=== PATIENT | female | born 1960 | race Caucasian/White ===

== ENCOUNTER → 2017-03-11 | Outpatient (CLI) | payer BC ==
[2017-03-11 08:31] LABS: HEMOGLOBIN 14.4 g/dL (12.0-15.5); HGB HCT DIFFERENCE 2.2; MEAN CORPUSCULAR HEMOGLOBIN 32.4 pg (27.0-33.4); MEAN CORPUSCULAR HGB CONC 35.1 g/dL (32.0-36.0); MEAN CORPUSCULAR VOLUME 92 fl (80-97); RED BLOOD COUNT 4.45 10^6/uL (3.72-5.28); RED CELL DISTRIBUTION WIDTH 13.5 % (11.5-14.0)
[2017-03-11 08:50] LABS: ALANINE AMINOTRANSFERASE 50 U/L (9-52); ALBUMIN 4.5 g/dL (3.5-5.0); ALKALINE PHOSPHATASE 47 U/L (38-126); ANION GAP 10 (5-19); ASPARTATE AMINO TRANSFERASE 41 U/L (14-36); BILIRUBIN,DIRECT 0.3 mg/dL (0.0-0.4); BILIRUBIN,TOTAL 0.4 mg/dL (0.2-1.3); BLOOD UREA NITROGEN 17 mg/dL (7-20); CALCIUM 9.4 mg/dL (8.4-10.2); CARBON DIOXIDE 30 mmol/L (22-30); CHLORIDE 103 mmol/L (98-107); CHOLESTEROL 180.38 mg/dL (0-200); CREATININE RESULT 0.69 mg/dL (0.52-1.25); Direct HDL 50 mg/dL (>40); GLUCOSE 97 mg/dL (75-110); POTASSIUM 4.5 mmol/L (3.6-5.0); SODIUM 142.6 mmol/L (137-145); TOTAL PROTEIN 7.4 g/dL (6.3-8.2); TRIGLYCERIDES 96 mg/dL (<150)
[2017-03-11 08:55] LABS: ALANINE AMINOTRANSFERASE 48 U/L (9-52); ALBUMIN 4.4 g/dL (3.5-5.0); ALKALINE PHOSPHATASE 48 U/L (38-126); ASPARTATE AMINO TRANSFERASE 40 U/L (14-36); BILIRUBIN,DIRECT 0.3 mg/dL (0.0-0.4); BILIRUBIN,TOTAL 0.4 mg/dL (0.2-1.3); TOTAL PROTEIN 7.3 g/dL (6.3-8.2)
[2017-03-11 09:01] LABS: DIRECT LDL 104 mg/dL (<100)
== END ==
LOC: OD 07:36
PROVIDERS: ATTEND Physician Assistant
DX: Z00.00 Encounter for general adult medical examination without abnormal findings (principal); B18.2 Chronic viral hepatitis C
CPT/HCPCS: 36415; 80053; 80061; 80076; 84443; 85027

== ENCOUNTER → 2017-03-18 | Outpatient (CLI) | payer BC ==
--- NOTE | 2017-03-18 14:36 | WOMENS IMAGING REPORT ---
EXAM DESCRIPTION: 3D SCREENING MAMMO BILAT COMPLETED DATE/TIME: 03/18/2017 2:14 pm REASON FOR STUDY: ROUTINE SCREENING; Z12.31 Z12.31 ENCNTR SCREEN MAMMOGRAM FOR MALIGNANT NEOPLASM O F FUNMI COMPARISON: 2008, 2012 TECHNIQUE: Standard craniocaudal and mediolateral oblique views of each breast recorded using digita l acquisition and breast tomosynthesis. LIMITATIONS: None. FINDINGS: No masses, calcifications or architectural distortion. No areas of suspicion. Read with the assistance of CAD. .[facility] - R2 Cenova Version 1.3 .[facility] Imaging - R2 Cenova Version 1.3 .[facility] Imaging - R2 Cenova Version 2.4 .[facility] - R2 Cenova Version 2.4 .[facility] - R2 Laundry Agent Version 9.2 IMPRESSION: NORMAL MAMMOGRAM. BIRADS 1. BREAST DENSITY: b. There are scattered areas of fibroglandular density. BIRAD: 1 NEGATIVE RECOMMENDATION: ROUTINE SCREENING COMMENT: The patient has been notified of the results by letter per SA requirements. Additional no tification policies are in place for contacting patient with suspicious or incomplete findings. Quality ID #[id number]: The [employer] recommends an annual screening mammogram for women aged 40 years or over. This facility utilizes a reminder system to ensure that all patients receive reminder letters, and/or direct phone calls for appointments. This includes reminders for routine scr eening mammograms, diagnostic mammograms, or other Breast Imaging Interventions when appropriate. Th is patient will be placed in the appropriate reminder system. The [employer] (ACR) has developed recommendations for screening MRI of the breast s in certain patient populations, to be used in conjunction with mammography. Breast MRI surveillanc e may be appropriate for women with more than 20% lifetime risk of developing breast cancer as deter mined by genetic testing, significant family history of the disease, or history of mantle radiation f or Hodgkins Disease. ACR Practice Guidelines 2008. DBT Technology DBT is a type of tomographic mammography. With conventional mammography, overlapping breast tissue ma y make lesions difficult to detect, even with good compression. DBT uses an x-ray tube that rotates a round the breast, taking images at different angles. These images are then combined to create thin sl ices of the breast that the radiologist can view as a 3D reconstruction. The Drive [employer] unit can perform full-field digital mammograms (2D imaging); or DBT (3D imaging); or both, in a combination mode that quickly performs both the mammogram and the tomosynthesis scan while the breast is still compressed. PQRS 6045F: Fluoroscopic imaging is not utilized for breast tomosynthesis. TECHNICAL DOCUMENTATION: FINDING NUMBER: (1) ASSESSMENT: (1) JOB ID: [id number] [employer]- All Rights Reserved
== END ==
LOC: WI 13:56
PROVIDERS: ATTEND Physician Assistant
DX: Z12.31 Encounter for screening mammogram for malignant neoplasm of breast (principal)
CPT/HCPCS: 77063; G0202; 77067

== ENCOUNTER 2017-06-19 18:38 | Observation (INO) | payer BC ==
[2017-06-19] MEDS ORDERED: ASPIRIN 81 MG TABLET, CHEWABLE PO ONE (18:47)
[2017-06-19] MEDS ORDERED: NITROGLYCERIN 0.4 MG/TAB 25 TAB/BOTTLE SL ONE (19:05)
[2017-06-19 19:06] LABS: ABSOLUTE BASOPHILS # (AUTO) 0.1 10^3/uL (0.0-0.2); ABSOLUTE EOSINOPHILS # (AUTO) 0.2 10^3/uL (0.0-0.6); ABSOLUTE LYMPHOCYTES (AUTO) 1.5 10^3/uL (0.5-4.7); ABSOLUTE MONOCYTES (AUTO) 0.5 10^3/uL (0.1-1.4); ABSOLUTE NEUT (AUTO) 2.9 10^3/uL (1.7-8.2); EOSINOPHILS % (AUTO) 4.5 % (0-6); HEMOGLOBIN 14.6 g/dL (12.0-15.5); HGB HCT DIFFERENCE 1.8; LYMPHOCYTES % (AUTO) 28.5 % (13-45); MEAN CORPUSCULAR HEMOGLOBIN 32.2 pg (27.0-33.4); MEAN CORPUSCULAR HGB CONC 34.9 g/dL (32.0-36.0); MEAN CORPUSCULAR VOLUME 92 fl (80-97); RED BLOOD COUNT 4.55 10^6/uL (3.72-5.28); RED CELL DISTRIBUTION WIDTH 13.5 % (11.5-14.0); WHITE BLOOD COUNT 5.2 10^3/uL (4.0-10.5)
--- NOTE | 2017-06-19 19:08 | ER Document Report ---
ED Cardiac - General Chief Complaint: Chest Pain Stated Complaint: CHEST TIGHTNESS Time Seen by Provider: 06/19/17 19:05 Notes: 56 years old female with no significant past medical history other than seronegative arthritis, was about to have her dinner felt sharp pain over the substernal to epigastric region radiated to the back to the jaw and felt sharp pain in the teeth in the left side. It lasted until she came to the ED. Initially the intensity of pain was 10/10 now is 4/10. Denies any any diaphoresis but had the sensation of heart beating faster. Denied any left arm numbness tingling sensation. Denies any constitutional symptoms. Denies any history of smoking or family history of heart disease except grandfather of [place]. TRAVEL OUTSIDE OF THE [place] IN LAST 30 DAYS: No - Related Data Allergies/Adverse Reactions: No Known Drug Allergies Allergy (Verified 02/24/12 15:08) Past Medical History - Social History Smoking Status: Never Smoker Family History: Reviewed & Not Pertinent - Past Medical History Cardiac Medical History: Denies: Hx Coronary Artery Disease, Hx Heart Attack, Hx Hypertension Pulmonary Medical History: Denies: Hx Asthma, Hx Bronchitis, Hx COPD, Hx Pneumonia Neurological Medical History: Denies: Hx Cerebrovascular Accident, Hx Seizures Musculoskeltal Medical History: Denies Hx Arthritis Past Surgical History: Denies: Hx Hysterectomy, Hx Pacemaker - Immunizations Hx Diphtheria, Pertussis, Tetanus Vaccination: No Review of Systems - Review of Systems Notes: REVIEW OF SYSTEMS: CONSTITUTIONAL : Denies fever, chills, or sweats. Denies recent illness. EENT: Denies eye, ear, throat, or mouth pain or symptoms. Denies nasal or sinus congestion or discharge. Denies throat, tongue, or mouth swelling or difficulty swallowing. CARDIOVASCULAR: Denies chest pain. Denies palpitations or racing or irregular heart beat. Denies ankle edema. RESPIRATORY: Denies cough, cold, or chest congestion. Denies shortness of breath, difficulty breathing, or wheezing. GASTROINTESTINAL: Denies abdominal pain or distention. Denies nausea, vomiting , or diarrhea. Denies blood in vomitus, stools, or per rectum. Denies black, tarry stools. Denies constipation. GENITOURINARY: Denies difficulty urinating, painful urination, burning, frequency, blood in urine, or discharge. FEMALE GENITOURINARY: Denies vaginal bleeding, heavy or abnormal periods, irregular periods. Denies vaginal discharge or odor. MUSCULOSKELETAL: Denies back or neck pain or stiffness. Denies joint pain or swelling. SKIN: Denies rash, lesions or sores. HEMATOLOGIC : Denies easy bruising or bleeding. LYMPHATIC: Denies swollen, enlarged glands. NEUROLOGICAL: Denies confusion or altered mental status. Denies passing out or loss of consciousness. Denies dizziness or lightheadedness. Denies headache. Denies weakness or paralysis or loss of use of either side. Denies problems with gait or speech. Denies sensory loss, numbness, or tingling. Denies seizures. PSYCHIATRIC: Denies anxiety or stress. Denies depression, suicidal ideation, or homicidal ideation. ALL OTHER SYSTEMS REVIEWED AND NEGATIVE. PHYSICAL EXAMINATION: GENERAL: Well-appearing, well-nourished and in no acute distress. HEAD: Atraumatic, normocephalic. EYES: Pupils equal round and reactive to light, extraocular movements intact, conjunctiva are normal. ENT: Nares patent, oropharynx clear without exudates. Moist mucous membranes. NECK: Normal range of motion, supple without lymphadenopathy LUNGS: Breath sounds clear to auscultation bilaterally and equal. No wheezes rales or rhonchi. HEART: Regular rate and rhythm without murmurs ABDOMEN: Soft, nontender, nondistended abdomen. No guarding, no rebound. No masses appreciated. Female : deferred Musculoskeletal: Normal range of motion, no pitting or edema. No cyanosis. NEUROLOGICAL: Cranial nerves grossly intact. Normal speech, normal gait. Normal sensory, motor exams PSYCH: Normal mood, normal affect. SKIN: Warm, Dry, normal turgor, no rashes or lesions noted. Dictation was performed using [employer] recognition software Physical Exam - Vital signs Vitals: Temp Pulse Resp BP Pulse Ox 97.8 F 66 16 144/73 H 98 06/19/17 18:40 06/19/17 18:40 06/19/17 18:40 06/19/17 18:40 06/19/17 18:40 Course - Re-evaluation Re-evalutation: 06/19/17 20:13 She is currently pain-free, fact that she had some jaw pain and teeth pain I like to observe for 24 hours. - Vital Signs Vital signs: Temp Pulse Resp BP Pulse Ox 97.8 F 66 16 144/73 H 100 06/19/17 18:40 06/19/17 18:40 06/19/17 18:40 06/19/17 18:40 06/19/17 19:00 - Laboratory Result Diagrams: 06/19/17 18:56 06/19/17 18:56 Laboratory results interpreted by me: 06/19/17 18:56 AST 63 H ALT 90 H Creatine Kinase 251 H - EKG Interpretation by Me EKG shows normal: Sinus rhythm - Sinus rhythm at the rate of 62 bpm normal axis no acute ST elevation ST depression T-wave inversion noted. Discharge - Discharge Clinical Impression: Chest pain, rule out acute myocardial infarction Condition: Fair Disposition: ADMITTED OBSERVATION Admitting Provider: Hospitalist Unit Admitted: Telemetry
[2017-06-19 19:23] LABS: ALANINE AMINOTRANSFERASE 90 U/L (9-52); ALBUMIN 4.7 g/dL (3.5-5.0); ALKALINE PHOSPHATASE 50 U/L (38-126); ASPARTATE AMINO TRANSFERASE 63 U/L (14-36); BILIRUBIN,DIRECT 0.3 mg/dL (0.0-0.4); BILIRUBIN,TOTAL 0.3 mg/dL (0.2-1.3); BLOOD UREA NITROGEN 16 mg/dL (7-20); CALCIUM 9.5 mg/dL (8.4-10.2); CARBON DIOXIDE 27 mmol/L (22-30); CREATINE KINASE 251 U/L (30-135); CREATININE RESULT 0.57 mg/dL (0.52-1.25); GLUCOSE 100 mg/dL (75-110); POTASSIUM 3.9 mmol/L (3.6-5.0); SODIUM 142.1 mmol/L (137-145); TOTAL PROTEIN 8.1 g/dL (6.3-8.2)
[2017-06-19 19:24] LABS: ANION GAP 13 (5-19); CHLORIDE 102 mmol/L (98-107)
[2017-06-19 19:34] LABS: CREATINE KINASE MB 2.21 ng/mL (<4.55)
[2017-06-19 19:36] LABS: TROPONIN I < 0.012 ng/mL
--- NOTE | 2017-06-19 19:40 | RADIOLOGY REPORT (SQ) ---
EXAM DESCRIPTION: CHEST SINGLE VIEW COMPLETED DATE/TIME: 06/19/2017 7:13 pm REASON FOR STUDY: bed 11 cp COMPARISON: None. NUMBER OF VIEWS: One view. TECHNIQUE: Single frontal radiographic view of the chest acquired. LIMITATIONS: None. FINDINGS: LUNGS AND PLEURA: No opacities, masses or pneumothorax. No pleural effusion. Attenuated bl ood vessels and flattened neeru-diaphragms. MEDIASTINUM AND HILAR STRUCTURES: No masses. Contour normal. HEART AND VASCULAR STRUCTURES: Heart normal in size. Normal vasculature. BONES: No acute findings. HARDWARE: None in the chest. OTHER: No other significant finding. IMPRESSION: COPD. NO ACUTE RADIOGRAPHIC FINDING IN THE CHEST. TECHNICAL DOCUMENTATION: JOB ID: [id number] [employer]- All Rights Reserved
[2017-06-19] MEDS ORDERED: NITROGLYCERIN 0.4 MG/TAB 25 TAB/BOTTLE SL PRN (20:24)
[2017-06-19] MEDS ORDERED: ONDANSETRON HCL INJ/PF 4 MG/2 ML SDV IV PRN (20:24)
[2017-06-19] MEDS ORDERED: METOPROLOL TARTRATE PF/INJ 5 MG/5 ML SDV IV PRN ×2 (20:24→23:45)
[2017-06-19] MEDS ORDERED: LANSOPRAZOLE 15 MG TAB.RAP.DR PO ONE (20:24)
[2017-06-19] MEDS ORDERED: LIDOCAINE 2% VISCOUS SOLN 20 ML UDCUP PO ONE (21:05)
[2017-06-19] MEDS ORDERED: MAG HYDROX/AL HYDROX/SIMETH SUSP 30 ML UDCUP PO ONE (21:05)
[2017-06-19] MEDS ORDERED: METOCLOPRAMIDE HCL ORAL SOLN 10 MG/10 ML UDCUP PO ONE (21:05)
[2017-06-19] MEDS ORDERED: PREDNISONE 20 MG TABLET PO ONE (21:30)
--- NOTE | 2017-06-19 22:50 | EKG REPORT ---
SEVERITY:- BORDERLINE ECG - SINUS RHYTHM BORDERLINE T ABNORMALITIES, INFERIOR LEADS : Confirmed by: Aldair Uribe 19-Jun-2017 22:49:03
--- NOTE | 2017-06-19 23:51 | PDOC H&P ---
History of Present Illness Admission Date/PCP: 06/19/17 20:29 LUIS FERNANDO WHITFIELD PA-C History of Present Illness: CHAGO MCGOVERN is a 56 year old female with a past medical history of hepatitis C status post Harvoni, and a seronegative arthritis who presents with complaints of chest pain. She reports that she went to a movie and then went to eat. She reports she was called at the movie and drank some hot coffee and rate after drinking hot coffee she began having substernal chest pain that she reports was sharp and lasted approximately 1 hour. She then reports the pain that went from her neck into her teeth. But she does not feel that this was pain that radiated from her chest to her neck. She denied any associated shortness of breath, nausea, vomiting, diaphoresis. She reports she felt her heart was beating hard. She reports that when EMS arrived her blood pressure was slightly high at first, but now is normal. Patient reports now that she has sharp chest pain with inspiration and also with pressing on her chest. She is referred to the hospital service for evaluation of her chest pain. Past Medical History Cardiac Medical History: Denies: Coronary Artery Disease, Myocardial Infarction, Hypertension Pulmonary Medical History: Denies: Asthma, Bronchitis, Chronic Obstructive Pulmonary Disease (COPD), Pneumonia Neurological Medical History: Denies: Seizures Musculoskeltal Medical History: Reports: Arthritis Hematology: Denies: Anemia Infectious Medical History: Reports: Hepatitis C Past Surgical History Past Surgical History: Reports: Appendectomy, Other - D&C Denies: Hysterectomy, Pacemaker Social History Smoking Status: Never Smoker Frequency of Alcohol Use: Occasional Hx Recreational Drug Use: No Hx Prescription Drug Abuse: No - Advance Directive Resuscitation Status: Full Code Surrogate healthcare decision maker:: Shaheed Mcgovern, Family History Family History: Hypertension Parental Family History Reviewed: Yes Children Family History Reviewed: Yes Sibling(s) Family History Reviewed.: Yes Medication/Allergy Home Medications: Azelastine HCl [Optivar 6 mL Drops] 1 drop OP DAILY 02/24/12 Levocetirizine Dihydrochloride [Xyzal 5 mg Tablet] 5 mg PO DAILY 02/24/12 Mometasone Furoate [Nasonex] 1 inh NS 02/24/12 Montelukast Sodium [Singulair 10 Mg Tablet] 10 mg PO QHS 02/24/12 Alpha Lipoic Acid [Alpha Lipoic Acid 100 mg Capsule] 200 mg PO 03/22/12 Milk Thistle 1,000 mg PO DAILY 03/22/12 Multivitamin [Multivitamins] 1 each PO 03/22/12 Allergies/Adverse Reactions: No Known Drug Allergies Allergy (Verified 02/24/12 15:08) Review of Systems Constitutional: ABSENT: chills, fever(s), headache(s), weight gain, weight loss Eyes: ABSENT: visual disturbances Ears: ABSENT: hearing changes Cardiovascular: PRESENT: as per HPI. ABSENT: chest pain, dyspnea on exertion, edema, orthropnea, palpitations Respiratory: ABSENT: cough, hemoptysis Gastrointestinal: ABSENT: abdominal pain, constipation, diarrhea, hematemesis, hematochezia, nausea, vomiting Genitourinary: ABSENT: dysuria, hematuria Musculoskeletal: ABSENT: joint swelling Integumentary: ABSENT: rash, wounds Neurological: ABSENT: abnormal gait, abnormal speech, confusion, dizziness, focal weakness, syncope Psychiatric: ABSENT: anxiety, depression, homidical ideation, suicidal ideation Endocrine: ABSENT: cold intolerance, heat intolerance, polydipsia, polyuria Hematologic/Lymphatic: ABSENT: easy bleeding, easy bruising Physical Exam Vital Signs: Temp Pulse Resp BP Pulse Ox 97.8 F 66 16 119/74 100 06/19/17 21:58 06/19/17 21:58 06/19/17 21:58 06/19/17 21:58 06/19/17 21:58 Intake & Output 06/18/17 06/19/17 06/20/17 06:59 06:59 06:59 Weight 64.3 kg General appearance: PRESENT: no acute distress, well-developed, well-nourished Head exam: PRESENT: atraumatic, normocephalic Eye exam: PRESENT: conjunctiva pink, EOMI, PERRLA. ABSENT: scleral icterus Ear exam: PRESENT: normal external ear exam Mouth exam: PRESENT: moist, tongue midline Neck exam: ABSENT: carotid bruit, JVD, lymphadenopathy, thyromegaly Respiratory exam: PRESENT: clear to auscultation sarita. ABSENT: rales, rhonchi, wheezes Cardiovascular exam: PRESENT: RRR. ABSENT: diastolic murmur, rubs, systolic murmur Pulses: PRESENT: normal dorsalis pedis pul Vascular exam: PRESENT: normal capillary refill GI/Abdominal exam: PRESENT: normal bowel sounds, soft. ABSENT: distended, guarding, mass, organolmegaly, rebound, tenderness Rectal exam: PRESENT: deferred Extremities exam: PRESENT: full ROM. ABSENT: calf tenderness, clubbing, pedal edema Neurological exam: PRESENT: alert, awake, oriented to person, oriented to place , oriented to time, oriented to situation, CN II-XII grossly intact. ABSENT: motor sensory deficit Psychiatric exam: PRESENT: appropriate affect, normal mood. ABSENT: homicidal ideation, suicidal ideation Skin exam: PRESENT: dry, intact, warm. ABSENT: cyanosis, rash Results Laboratory Results: 06/19/17 06/19/17 06/19/17 18:56 18:56 18:56 WBC 5.2 Hgb 14.6 Hct 42.0 Plt Count 199 Sodium 142.1 Potassium 3.9 Chloride 102 Carbon Dioxide 27 BUN 16 Creatinine 0.57 AST 63 H ALT 90 H Creatine Kinase 251 H CK-MB (CK-2) 2.21 Albumin 4.7 EKG Comments: NSR no st changes Impressions: Chest X-Ray 06/19/17 18:47 IMPRESSION: COPD. NO ACUTE RADIOGRAPHIC FINDING IN THE CHEST. Status: Imported from PACS Assessment & Plan - Diagnosis (1) Chest pain, rule out acute myocardial infarction Is this a current diagnosis for this admission?: Yes Plan: Place patient on telemetry observation. Monitor for arrhythmia or ST segment changes. Initiate patient on metoprolol, Lipitor, oxygen, nitroglycerin, and aspirin. Serial cardiac enzymes every 6 hours. Testing lipid panel in the morning. (2) Musculoskeletal pain Is this a current diagnosis for this admission?: Yes Plan: Will initiate patient on prednisone 60 mg p.o. daily. (3) Elevated LFTs Is this a current diagnosis for this admission?: Yes Plan: Likely secondary to history of hepatitis C. Will defer this to her outpatient GI doctor - Time Time Spent: 30 to 50 Minutes Medications reviewed and adjusted accordingly: Yes Anticipated discharge: Home Within: within 24 hours - Inpatient Certification Based on my medical assessment, after consideration of the patient's comorbidities, presenting symptoms, or acuity I expect that the services needed warrant INPATIENT care.: No I certify that my determination is in accordance with my understanding of Medicare's requirements for reasonable and necessary INPATIENT services [42 CFR 412.3e].: No Post Hospital Care: D/C Tester Armature Or Fields Documentation
[2017-06-20 06:39] LABS: CHOLESTEROL 189.56 mg/dL (0-200); Direct HDL 54 mg/dL (>40); TRIGLYCERIDES 59 mg/dL (<150)
[2017-06-20 06:50] LABS: DIRECT LDL 111 mg/dL (<100)
[2017-06-20] MEDS ORDERED: PREDNISONE 20 MG TABLET PO SCH (10:00)
[2017-06-20] MEDS ORDERED: ASPIRIN 325 MG TABLET, ENT COATED PO SCH (10:00)
[2017-06-20] MEDS: HYDROXYCHLOROQUINE SULFATE 200 MG TABLET PO SCH ×2 (12:12→16:51)
[2017-06-20] MEDS ORDERED: ONDANSETRON HCL INJ/PF 4 MG/2 ML SDV IV PRN (13:30)
[2017-06-20] MEDS ORDERED: MELOXICAM 15 MG TABLET PO ONE (13:45)
[2017-06-20 17:12] VITALS: BP 101/59
--- NOTE | 2017-06-20 17:12 | PDOC DISCHARGE SUMMARY ---
General - Admit/Disc Date/PCP Admission Date/Primary Care Provider: 06/19/17 20:29 LUIS FERNANDO WHITFIELD PA-C Discharge Date: 06/20/17 - Discharge Diagnosis (2) Elevated LFTs Is this a current diagnosis for this admission?: Yes (3) Musculoskeletal pain Is this a current diagnosis for this admission?: Yes - Additional Information Resuscitation Status: Full Code Prescriptions: Prednisone [Deltasone 20 mg Tablet] 60 mg PO DAILY #9 tablet Home Medications: Multivitamin [Multivitamins] 1 cap PO DAILY 03/22/12 Cetirizine HCl [Zyrtec 10 mg Tablet] 10 mg PO DAILY 06/20/17 Hydroxychloroquine Sulfate [Plaquenil 200 mg Tablet] 400 mg PO WBRKFST 06/20/17 Meloxicam [Mobic] 15 mg PO WBRKFST 06/20/17 Prednisone [Deltasone 20 mg Tablet] 60 mg PO DAILY #9 tablet 06/20/17 Psyllium Husk [Metamucil] 0.8 gm PO DAILY 06/20/17 History of Present Illness History of Present Illness: CHAGO MCGOVERN is a 56 year old white female with a past medical history significant for hep C currently on therapy and mixed connective tissue disease who presented to the service with chest wall pain. Please see details of the patient's admission as outlined below by the admitting physician. Admission Date/PCP: 06/19/17 20:29 LUIS FERNANDO WHITFIELD PA-C History of Present Illness: CHAGO MCGOVERN is a 56 year old female with a past medical history of hepatitis C status post Harvoni, and a seronegative arthritis who presents with complaints of chest pain. She reports that she went to a movie and then went to eat. She reports she was called at the movie and drank some hot coffee and rate after drinking hot coffee she began having substernal chest pain that she reports was sharp and lasted approximately 1 hour. She then reports the pain that went from her neck into her teeth. But she does not feel that this was pain that radiated from her chest to her neck. She denied any associated shortness of breath, nausea, vomiting, diaphoresis. She reports she felt her heart was beating hard. She reports that when EMS arrived her blood pressure was slightly high at first, but now is normal. Patient reports now that she has sharp chest pain with inspiration and also with pressing on her chest. She is referred to the hospital service for evaluation of her chest pain. Hospital Course Hospital Course: Patient was admitted to the service in the observation unit. She had a troponins trended. Her first troponin was negative. The troponins eventually hubert to 0.06 and then came back down to 0.03 and 0.012. All troponins were negative. The patient readily admits that her pain was reproducible and started in a cold movie theater which has set off her mixed connective tissue disease symptoms before. He was placed on prednisone 60 here. We have plans for her to continue this for total of 3 days and then stop. She has a human development professor that she follows with as an outpatient and she keep her previously scheduled appointment with that person. The patient is followed across the street at [facility]. I have suggested that she follow-up within a week and have an outpatient stress test. At this point in time the patient's chest wall pain is improved. There is still some soreness with palpation but the patient is fit to be discharged from the hospital Physical Exam Vital Signs: Temp Pulse Resp BP Pulse Ox 97.7 F 68 16 98/58 L 98 06/20/17 15:37 06/20/17 15:37 06/20/17 15:37 06/20/17 15:37 06/20/17 15:37 Intake & Output 06/19/17 06/20/17 06/21/17 06:59 06:59 06:59 Output Total 300 Balance -300 Weight 64.1 kg GENERAL: This is a well-developed and nourished appearing white female resting in a chair currently in no acute distress. HEART: Regular rate and rhythm. No murmurs, rubs or gallops. Chest wall tenderness is present over the fourth and fifth intercostal space on the right- hand side. LUNGS: Clear to auscultation bilaterally with equal rise and fall of the chest. ABDOMEN: Soft, nontender, nondistended with normoactive bowel sounds EXTREMETIES: No clubbing, cyanosis or edema. 2+ peripheral pulses bilaterally. NEURO: Awake, alert and oriented 3. Cranial nerves II through XII are grossly intact. The patient stood to greet me. she is quite steady on her feet. He ambulates well. Results Laboratory Results: 06/20/17 06:05 Triglycerides 59 Cholesterol 189.56 LDL Cholesterol Direct 111 H VLDL Cholesterol 12.0 HDL Cholesterol 54 06/20/17 06/20/17 06/20/17 01:02 06:05 11:56 Troponin I 0.063 0.033 < 0.012 Impressions: Chest X-Ray 06/19/17 18:47 IMPRESSION: COPD. NO ACUTE RADIOGRAPHIC FINDING IN THE CHEST. Qualifiers PATEINT BEING DISCHARGED WITH ANY OF THE FOLLOWING DIAGNOSIS?: No Plan Time Spent: Less than 30 Minutes
[2017-06-21] MEDS ORDERED: MELOXICAM 15 MG TABLET PO SCH (08:00)
[2017-06-21] MEDS ORDERED: ASPIRIN 325 MG TABLET, ENT COATED PO SCH (10:00)
== END 2017-06-20 17:38 | disposition home or self-care (01) ==
LOC: ER 18:38 → EH 20:29 → 5 21:45
PROVIDERS: ADMIT Family Medicine; ATTEND Family Medicine
DX: R79.89 Other specified abnormal findings of blood chemistry (principal); M79.1 Myalgia; R07.89 Other chest pain; B19.20 Unspecified viral hepatitis C without hepatic coma; M35.1 Other overlap syndromes; R68.84 Jaw pain; K08.89 Other specified disorders of teeth and supporting structures; Z79.899 Other long term (current) drug therapy; Z90.49 Acquired absence of other specified parts of digestive tract; Z82.49 Family history of ischemic heart disease and other diseases of the circulatory system
CPT/HCPCS: 93005; 99285; 36415 ×2; 82553; 82550; 85025; 80053; 84484 ×2; 80061; 71010; 93010; J3490 ×4; J7512 ×2

== ENCOUNTER → 2019-02-23 | Outpatient (CLI) | payer BC ==
--- NOTE | 2019-02-24 13:47 | RADIOLOGY REPORT (SQ) ---
EXAM DESCRIPTION: MRI PELVIS WITHOUT COMPLETED DATE/TIME: 02/23/2019 6:00 pm REASON FOR STUDY: R10.2 PELVIC AND PERINEAL PAIN R10.2 PELVIC AND PERINEAL PAIN COMPARISON: None. TECHNIQUE: Multiplanar multisequence imaging performed without contrast including axial, sagittal an d coronal T2, axial T1, sagittal inversion recovery. LIMITATIONS: None. FINDINGS: BLADDER AND URETHRA: No focal bladder wall thickening or nodularity. Smooth mucosa. The urethra has smooth contour with no focal asymmetry. No focal lesions. PELVIC SOFT TISSUES: Normal. No masses. UTERUS: Normal size. No masses. Junctional zone normal. RIGHT OVARY: Normal size. No masses. LEFT OVARY: Normal size. No masses. FREE FLUID: None. PELVIC SKELETAL STRUCTURES: No abnormal marrow signal. EXTRA PELVIS SOFT TISSUES: No masses. OTHER: No other significant finding. IMPRESSION: NORMAL FEMALE PELVIC MRI WITHOUT CONTRAST. TECHNICAL DOCUMENTATION: JOB ID: [id number] [employer]- All Rights Reserved Reading location - IP/workstation name: [email or web address]
== END ==
LOC: RAD 16:27
PROVIDERS: ATTEND Physician Assistant
DX: R10.2 Pelvic and perineal pain (principal)
CPT/HCPCS: 72195

== ENCOUNTER → 2019-04-04 | Outpatient (CLI) | payer BC ==
--- NOTE | 2019-04-04 13:50 | WOMENS IMAGING REPORT ---
EXAM DESCRIPTION: BONE DENSITY HIP/SPINE COMPLETED DATE/TIME: 04/04/2019 1:26 pm REASON FOR STUDY: Z78.0 ASYMPTOMATIC MENOPAUSAL STATE Z78.0 ASYMPTOMATIC MENOPAUSAL STATE COMPARISON: None. TECHNIQUE: Dual-Energy X-ray Absorptiometry (DEXA) of the AP Spine and Hip. LIMITATIONS: None. FINDINGS: LUMBAR SPINE: The bone mineral density (BMD) measured from L1-L4 in the AP projection correlates with a T-score of -2.3, which is osteopenia as defined by the World Health Organization. BMD Change vs Baseline: N/A HIP: The bone mineral density (BMD) measured in the left hip correlates with a T-score of -1.9 in the femo ral neck, which is osteopenia as defined by the World Health Organization. BMD Change vs Baseline: N/A 10 year Fracture Risk Assessment: Major Osteoporotic Fracture: 8% Hip Fracture: 0.9% IMPRESSION: 1. LUMBAR SPINE WHO CLASSIFICATION: Osteopenia 2. HIP WHO CLASSIFICATION: Osteopenia OVERALL ASSESSMENT: WHO CLASSIFICATION: Osteopenia COMMENT: The World Health Organization defines low BMD as follows: T-score: Normal: Greater than -1.0 Osteopenia: Between -1.0 and -2.5 Osteoporosis: Less than -2.5 without fractures Established osteoporosis: Less than -2.5 with fractures In general, you may wish to consider: Diagnosis Treatment Follow-up DEXA Normal BMD Prevention 2-3 years Osteopenia Prevention/Therapy 1-2 years Osteoporosis Therapy Yearly TECHNICAL DOCUMENTATION: JOB ID: [id number] [employer]- All Rights Reserved Reading location - IP/workstation name: [email or web address]
== END ==
LOC: WI 12:55
PROVIDERS: ATTEND Physician Assistant
DX: M85.88 Other specified disorders of bone density and structure, other site (principal); Z78.0 Asymptomatic menopausal state
CPT/HCPCS: 77080

== ENCOUNTER → 2019-04-10 | Outpatient (CLI) | payer BC ==
[2019-04-10 09:18] LABS: ABSOLUTE EOSINOPHILS # (AUTO) 0.2 10^3/uL (0.0-0.6); ABSOLUTE MONOCYTES (AUTO) 0.4 10^3/uL (0.1-1.4); ABSOLUTE NEUT (AUTO) 2.5 10^3/uL (1.7-8.2); BASOPHILS % (AUTO) 1.1 % (0-2); EOSINOPHILS % (AUTO) 3.9 % (0-6); HEMOGLOBIN 14.6 g/dL (12.0-15.5); LYMPHOCYTES % (AUTO) 24.9 % (13-45); MEAN CORPUSCULAR HEMOGLOBIN 31.2 pg (27.0-33.4); MEAN CORPUSCULAR VOLUME 92 fl (80-97); MONOCYTES % (AUTO) 9.3 % (3-13); PLATELET COUNT 205 10^3/uL (150-450); RED BLOOD COUNT 4.69 10^6/uL (3.72-5.28); RED CELL DISTRIBUTION WIDTH 14.1 % (11.5-14.0); SEGMENTED NEUTROPHILS % (AUTO) 60.8 % (42-78); TOTAL CELLS COUNTED % (AUTO) 100 %; WHITE BLOOD COUNT 4.1 10^3/uL (4.0-10.5)
[2019-04-10 10:00] LABS: ALBUMIN 4.3 g/dL (3.5-5.0); ALKALINE PHOSPHATASE 42 U/L (38-126); ANION GAP 10 (5-19); ASPARTATE AMINO TRANSFERASE 34 U/L (14-36); BILIRUBIN,DIRECT 0.3 mg/dL (0.0-0.4); BILIRUBIN,TOTAL 0.3 mg/dL (0.2-1.3); BLOOD UREA NITROGEN 15 mg/dL (7-20); CALCIUM 9.3 mg/dL (8.4-10.2); CARBON DIOXIDE 29 mmol/L (22-30); CHLORIDE 102 mmol/L (98-107); CHOLESTEROL 178.94 mg/dL (0-200); GLUCOSE 97 mg/dL (75-110); POTASSIUM 4.7 mmol/L (3.6-5.0); TOTAL PROTEIN 7.3 g/dL (6.3-8.2); TRIGLYCERIDES 72 mg/dL (<150)
[2019-04-10 10:13] LABS: DIRECT LDL 112 mg/dL (<100)
== END ==
LOC: OD 08:34
PROVIDERS: ATTEND Physician Assistant
DX: Z12.11 Encounter for screening for malignant neoplasm of colon (principal); Z12.31 Encounter for screening mammogram for malignant neoplasm of breast; Z78.0 Asymptomatic menopausal state
CPT/HCPCS: 36415; 80053; 80061; 84443; 85025

== ENCOUNTER → 2020-04-01 | Outpatient (CLI) | payer BC ==
[2020-04-01 10:53] LABS: ABSOLUTE EOSINOPHILS # (AUTO) 0.1 10^3/uL (0.0-0.6); ABSOLUTE LYMPHOCYTES (AUTO) 1.2 10^3/uL (0.5-4.7); ABSOLUTE MONOCYTES (AUTO) 0.4 10^3/uL (0.1-1.4); ABSOLUTE NEUT (AUTO) 1.9 10^3/uL (1.7-8.2); BASOPHILS % (AUTO) 1.1 % (0-2); EOSINOPHILS % (AUTO) 2.7 % (0-6); HEMATOCRIT 41.8 % (36.0-47.0); HEMOGLOBIN 14.5 g/dL (12.0-15.5); LYMPHOCYTES % (AUTO) 32.1 % (13-45); MEAN CORPUSCULAR HEMOGLOBIN 32.1 pg (27.0-33.4); MEAN CORPUSCULAR HGB CONC 34.5 g/dL (32.0-36.0); MEAN CORPUSCULAR VOLUME 93 fl (80-97); MONOCYTES % (AUTO) 10.5 % (3-13); PLATELET COUNT 184 10^3/uL (150-450); RED CELL DISTRIBUTION WIDTH 13.4 % (11.5-14.0); SEGMENTED NEUTROPHILS % (AUTO) 53.6 % (42-78); TOTAL CELLS COUNTED % (AUTO) 100 %; WHITE BLOOD COUNT 3.6 10^3/uL (4.0-10.5)
[2020-04-01 11:12] LABS: ALBUMIN 4.7 g/dL (3.5-5.0); ALKALINE PHOSPHATASE 31 U/L (38-126); ANION GAP 10 (5-19); ASPARTATE AMINO TRANSFERASE 36 U/L (14-36); BILIRUBIN,DIRECT 0.2 mg/dL (0.0-0.4); BILIRUBIN,TOTAL 0.6 mg/dL (0.2-1.3); BLOOD UREA NITROGEN 15 mg/dL (7-20); CALCIUM 9.6 mg/dL (8.4-10.2); CARBON DIOXIDE 30 mmol/L (22-30); CHLORIDE 100 mmol/L (98-107); CHOLESTEROL 205.03 mg/dL (0-200); GLUCOSE 98 mg/dL (75-110); POTASSIUM 4.3 mmol/L (3.6-5.0); TOTAL PROTEIN 7.7 g/dL (6.3-8.2); TRIGLYCERIDES 114 mg/dL (<150)
[2020-04-01 11:25] LABS: DIRECT LDL 123 mg/dL (<100)
== END ==
LOC: OD 08:56
PROVIDERS: ATTEND Physician Assistant
DX: Z00.00 Encounter for general adult medical examination without abnormal findings (principal)
CPT/HCPCS: 36415; 80053; 80061; 85025

== ENCOUNTER 2020-04-04 11:57 | Day surgery (SDC) | payer BC ==
[2020-04-04] MEDS ORDERED: PROPOFOL INJ 200 MG/20 ML VIAL IV ONE (13:41)
--- NOTE | 2020-04-04 14:40 | Operative Report ---
Operative Report DATE OF SURGERY: 04/04/20 Operative Report: Pre-op diagnosis: Colon cancer screening Post-op diagnosis: 1. Sigmoid colon polyps 2. Internal hemorrhoids Surgery: Colonoscopy with polypectomy Medications: As per anesthesia Tissue removed: Procedure: After informed consent obtained from patient, conscious sedation was achieved. A digital rectal examination was performed and this was unremarkable. The colonoscope was inserted into the rectum and advanced to the cecum. The appendiceal orifice and the terminal ileum were both identified. The mucosa was examined into details as the colonoscope was slowly pulled out of the patient. The endoscope was retroflexed in the rectum. Patient tolerated the procedure well. Findings Cecum: Normal Ascending colon: Normal Transverse colon: Normal Descending colon: Normal Sigmoid colon: Two 5 to 6mm hyperplastic looking polyps removed with cold snare. Rectum: Normal except for internal hemorrhoids Plan: Await pathology. Repeat colonoscopy in 5 or 10 years depending on pathology OPERATION: .
[2020-04-04 15:21] VITALS: BP 101/66
== END 2020-04-04 15:25 | disposition home or self-care (01) ==
LOC: END 11:57
PROVIDERS: ATTEND Internal Medicine Gastroenterology
DX: Z12.11 Encounter for screening for malignant neoplasm of colon (principal); K63.5 Polyp of colon; K64.8 Other hemorrhoids; K21.9 Gastro-esophageal reflux disease without esophagitis; J30.2 Other seasonal allergic rhinitis; Z86.19 Personal history of other infectious and parasitic diseases; Z79.899 Other long term (current) drug therapy; Z03.818 Encounter for observation for suspected exposure to other biological agents ruled out
CPT/HCPCS: 45385; 88305 ×2; 00812; U0003; J2704; C9803; 812; 87635